=== PATIENT | female | born 1970 | race Caucasian/White ===

== ENCOUNTER 2021-04-11 14:29 | Emergency (ER) | payer OTHER ==
--- NOTE | 2021-04-11 14:58 | ERPHSYRPT ---
- History of Present Illness Time Seen by Provider: 04/11/21 14:55 Source: patient Exam Limitations: no limitations Physician History: Patient is 50-year-old female recently had a left hip surgery couple weeks ago today while she was sitting she suddenly had a pop on her left hip the site where she had a surgery done in then she started having cramps in her left thigh so she came to the emergency room. Patient is morbidly obese. Patient surgical wound is healing well. Steri-Strips are still present. Patient can lift her left lower extremity as well as she can bend the knee as well as she can turn around her left ankle. Method of Injury: unknown Occurred: just prior to arrival Quality: intermittent Severity of Pain-Max: mild Severity of Pain-Current: mild Lower Extremities Pain: hip: left, thigh: left Modifying Factors: Improves With: nothing Associated Symptoms: popping sensation Allergies/Adverse Reactions: No Known Drug Allergies Allergy (Unverified 04/11/21 14:30) - Review of Systems Constitutional: No Fever, No Chills Eyes: No Symptoms Ears, Nose, & Throat: No Symptoms Respiratory: No Cough, No Dyspnea Cardiac: No Chest Pain, No Edema, No Syncope Abdominal/Gastrointestinal: No Abdominal Pain, No Nausea, No Vomiting, No Diarrhea Genitourinary Symptoms: No Dysuria Musculoskeletal: Joint Pain, No Back Pain, No Neck Pain, No Fall Skin: No Rash Neurological: No Dizziness, No Focal Weakness, No Sensory Changes Psychological: No Symptoms Endocrine: No Symptoms All Other Systems: Reviewed and Negative - Nursing Vital Signs Nursing Vital Signs: Initial Vital Signs Temperature 98.2 F 04/11/21 14:29 Respiratory Rate 18 04/11/21 14:29 Blood Pressure 130/79 04/11/21 14:29 O2 Sat by Pulse Oximetry 98 04/11/21 14:29 Pain Scale Pain Intensity 6 - Physical Exam General Appearance: alert Eyes, Ears, Nose, Throat Exam: moist mucous membranes Neck Exam: non-tender, supple Cardiovascular/Respiratory Exam: chest non-tender, normal breath sounds, regular rate/rhythm, no respiratory distress Gastrointestinal/Abdominal Exam: non-tender, guarding Back Exam: normal inspection, No vertebral tenderness Neuro/Tendon Exam: normal sensation, normal motor functions Mental Status Exam: alert, oriented x 3, cooperative Skin Exam: normal color, warm, dry - Course Nursing assessment & vital signs reviewed: Yes - Radiology Exams Hip X-ray Interpretation: Reviewed by me, No Fracture, No Subluxation Femur X-ray Interpretation: Reviewed by me, No Fracture, No Subluxation Ordered Tests: Active Orders 24 hr Category Date Time Status FEMUR Stat Exams 04/11/21 15:15 Taken HIP UNI (2V) INCL PEL IF DONE Stat Exams 04/11/21 14:39 Taken Medication Summary Discontinued Medications Generic Name Dose Route Start Last Admin Trade Name Nehemias PRN Reason Stop Dose Admin Ketorolac Tromethamine 60 mg 04/11/21 16:59 04/11/21 17:06 Ketorolac Tromethamine 30 Mg/Ml Inj IM 04/11/21 17:00 60 mg STAT ONE Administration Ketorolac Tromethamine Confirm 04/11/21 17:05 Ketorolac Tromethamine 30 Mg/Ml Inj Administered 04/11/21 17:06 Dose 60 mg .ROUTE .STK-MED ONE - Progress Progress: improved Progress Note: 04/11/21 17:21 Dr. Lu called from [facility]. I discussed the radiology findings with him and he wants patient to be transferred to [facility] as an inpatient. He is going to call the clinic and they will call us with the bed and then we will transfer patient. Counseled pt/family regarding: diagnosis, need for follow-up, rad results - Departure Departure Disposition: Transfer ([facility] inpatient) Clinical Impression: Left hip pain, S/P total left hip arthroplasty Dislocation of hip joint prosthesis Qualifiers: Encounter type: initial encounter Qualified Code(s): T84.029A - Dislocation of unspecified internal joint prosthesis, initial encounter Condition: Stable Critical Care Time: No Instructions: Total Hip Replacement (DC), Postop Total Hip Replacement Exercises Lying Down, Postop Total Hip Replacement Exercises Standing Additional Instructions: TOMSAMANTHA was seen on 04/11/21 n the Emergency Room. At that time you were treated for an emergent condition, during your visit Laboratory, Radiology and/or other procedures may have been ordered. It is very important that you follow-up with your Primary Care Physician ASTER HERNANDEZ within the next 24-48 hours to review your Emergency Room visit and the final results of testing that was ordered. Some test results such as Urine Cultures, Blood Cultures, and other cultures if ordered will not be finalized for 24-48 hours. If you do not have a Primary Care Provider please call the medical records department at [phone] to obtain a copy of your results or you may sign into our patient portal to obtain these results by visiting us @ [email or web address] and completing the following steps: 1. Click on the Patient Portal link 2. Click the Patient Self Enrollment Link to complete the enrollment form and entering your 3. Once the enrollment form is completed you will receive an email with a temporary ID and password at the email address you provided. 4. Next choose a user name and password. Your user name must be at least 4 characters long and your password must be at least 4 characters long. 5. Choose a security question from the list and provide your answer to the question. If you already have signed into the Health Portal you may access your Health Care Information 12/09 by the following steps: 1. Login to our website @ [email or web address] 2. Enter your original user name and password. FAQS [facility] Health Portal is an online tool that contains your Lab Results, Radiology Reports, Visit History, Discharge Instructions and Health Summary Lab and Radiology Results will not be available for 72 hours on the portal. The Portal is a secure site, passwords are encryted and URLs are re-written so they cannot be copied and pasted. You and authorized family members are the only ones who can access your Portal. Also there is a timeout feature that protects your information if you leave the Portal page open. If you have technical difficulty please use the Contact Us link on the page this will allow you to submit any questions you have regarding the Portal or you may contact the Medical Record Department at [phone]. Discharge/Care Plan SAMANTHA SANTOS was seen on 04/11/21 in the Emergency Room. The patient was counseled regarding Diagnosis,Lab results, Imaging studies, need for follow up and when to return to the Emergency Room. Prescriptions given: Discharge Note I have spoken with the patient and/or caregivers. I have explained the patient's condition, diagnosis and treatment plan based on the information available to me at this time. I have answered the patient's and/or caregiver's questions and addressed any concerns. The patient and/or caregivers have as good understanding of the patient's diagnosis, condition and treatment plan as can be expected at this point. The vital signs have been stable. The patient's condition is stable and appropriate for discharge from the emergency department. The patient will pursue further outpatient evaluation with the primary care physician or other designated or consulting physician as outlined in the discharge instructions. The patient and/or caregivers are agreeable to this plan of care and follow-up instructions have been explained in detail. The patient and/or caregivers have received these instruction. The patient/and or caregivers are aware that any significant change in condition or worsening of symptoms should prompt an immediate return to this or the closest emergency department or call 911.
[2021-04-11 15:26] VITALS: O2SAT 98
[2021-04-11] MEDS ORDERED: TORAdol 30 mg Injection IM ONE (16:59)
[2021-04-11] MEDS ORDERED: TORAdol 30 mg Injection ONE (17:05)
--- NOTE | 2021-04-11 19:06 | XRAY ---
Indication: Pain. Comparison: None 2 view left hip demonstrates total hip arthroplasty with superiorly dislocated femoral prosthesis. Elsewhere osteopenia. No other bony, articular, or soft tissue abnormalities. Comment: Preliminary interpretation may by [facility]. No critical discrepancy.
--- NOTE | 2021-04-11 19:06 | XRAY ---
Indication: Pain. Comparison: None 2 view left femur demonstrates total hip arthroplasty with superiorly dislocated femoral prosthesis. Elsewhere osteopenia, mild medial knee degenerative arthropathy, and tiny posterior needle fabella. No other bony, articular, or soft tissue abnormalities. Comment: Preliminary interpretation may by [facility]. No critical discrepancy.
[2021-04-11] MEDS ORDERED: Zofran 4 MG/2 ML VIAL IV ONE (20:02)
[2021-04-11] MEDS ORDERED: MORPHINE SULFATE 2 MG INJ IV ONE (20:02)
[2021-04-11] MEDS ORDERED: Zofran 4 MG/2 ML VIAL ONE (20:04)
[2021-04-11 20:05] VITALS: BP 103/56; PULSE 67
[2021-04-11] MEDS ORDERED: MORPHINE SULFATE 2 MG INJ ONE (20:05)
== END 2021-04-11 20:15 | disposition short-term general hospital (02) ==
LOC: ED 14:29
DX: T84.021A Dislocation of internal left hip prosthesis, initial encounter (principal); M25.552 Pain in left hip; E66.9 Obesity, unspecified
CPT/HCPCS: 51702; 73502; 73552; 96374; 96375; 99285; J1885; J2270; J2405